=== PATIENT | female | born 1940 | race Caucasian/White ===

== ENCOUNTER 2018-08-22 19:58 | Emergency (ER) | payer MEDICARE ==
[~2018-08-22] VITALS: Ht 152.4 cm; Wt 76.8 kg
[2018-08-22 20:42] LABS: BASOPHILS # (AUTO) 0.1 X10'3 (0-0.2); BASOPHILS % (AUTO) 0.5 % (0-1); EOSINOPHILS # (AUTO) 0.3 X10'3 (0-0.9); EOSINOPHILS % (AUTO) 2.7 % (0-6); HEMATOCRIT 38.9 % (35.0-45.0); HEMOGLOBIN 12.9 g/dl (12.0-16.0); LYMPHOCYTES # (AUTO) 1.3 X10'3 (1.1-4.8); LYMPHOCYTES % (AUTO) 12.7 % (21-51); MEAN CORPUSCULAR HEMOGLOBIN 30.9 PG (27.0-31.0); MEAN CORPUSCULAR HGB CONC 33.2 g/dL (33.0-36.5); MEAN PLATELET VOLUME 7.9 FL (7.4-10.4); MONOCYTES # (AUTO) 1.2 X10'3 (0-0.9); NEUTROPHILS # (AUTO) 7.7 X10'3 (1.8-7.7); NEUTROPHILS % (AUTO) 73.1 % (42-75); PLATELET COUNT 265 X10'3 (140-440); RED BLOOD COUNT 4.18 X10'6 (4.20-5.60); RED CELL DISTRIBUTION WIDTH 13.8 % (11.5-14.5); WHITE BLOOD COUNT 10.5 X10'3 (4.5-11.0)
[2018-08-22 20:53] LABS: CLARITY,URINE SLIGHTLY CLOUDY (Clear); COLOR,URINE YELLOW (Yellow); GLUCOSE, URINE NEGATIVE (Neg); KETONES,URINE NEGATIVE (Neg); LEUKOCYTE ESTERASE ,URINE SMALL (Neg); NITRITES, URINE NEGATIVE (Neg); OCCULT BLOOD,URINE SMALL (Neg); PH,URINE 5.5 (4.8-8.0); PROTEIN,URINE TRACE mg/dl (Neg); UROBILINOGEN,URINE 0.2 E.U/dL (0.2-1.0)
[2018-08-22 20:59] LABS: ALANINE AMINOTRANSFERASE 20 U/L (12-78); ALBUMIN 3.7 G/DL (3.4-5.0); ALBUMIN/GLOBULIN RATIO 0.9 (1.1-1.5); ALKALINE PHOSPHATASE 64 IU/L (46-116); ANION GAP 9 (8-16); ASPARTATE AMINO TRANSFERASE 18 U/L (10-37); BILIRUBIN,TOTAL 0.6 MG/DL (0.1-1.0); BLOOD UREA NITROGEN 18 MG/DL (7-18); BUN/CREATININE RATIO 21.7 (6.6-38.0); CALCIUM 9.5 MG/DL (8.5-10.1); CHLORIDE 101 MMOL/L (99-107); CREATININE 0.83 MG/DL (0.40-0.90); GLUCOSE 118 MG/DL (70-104); LIPASE 120 U/L (73-393); POTASSIUM 3.7 MMOL/L (3.5-5.1); SODIUM 138 MMOL/L (135-145); TOTAL CARBON DIOXIDE 27.7 MMOL/L (24-32); TOTAL PROTEIN 7.8 G/DL (6.4-8.2); eGFR 66 ML/MIN
[2018-08-22] MEDS ORDERED: normal saline 1000ML IV soln IVB ONE (21:00)
[2018-08-22] MEDS ORDERED: ondansetron/PF 4mg/2ml inj IV ONE (21:00)
[2018-08-22 21:01] LABS: UA COLLECTION TYPE CLN CATCH MIDSTREAM
[2018-08-22 21:12] LABS: CAL OXALATE CRYSTALS FEW /HPF (NEGATIVE); SQUAMOUS EPITHELIAL CELL,UR MANY /LPF (FEW)
[2018-08-22 21:13] LABS: AMORPHOUS URATES 2+; BACTERIA,URINE FEW /HPF (Neg); RBC,URINE 0-2 /HPF (0-2); WBC,URINE 0-4 /HPF (0-4)
[2018-08-22] MEDS: morphine 4 MG/ML inj SYRINge IV PRN ×2 (21:32→23:19)
[2018-08-22] MEDS ORDERED: ciprofloxacin 250mg tablet PO ONE (22:55)
[2018-08-22] MEDS ORDERED: metroNIDAZOLE 500mg tablet PO ONE (22:55)
[2018-08-22] MEDS ORDERED: HYDR-3965 PO (22:58)
[2018-08-22] MEDS ORDERED: SENN-162 PO (22:58)
[2018-08-22] MEDS ORDERED: CIPR-230 PO (22:58)
[2018-08-22] MEDS ORDERED: METR-159 PO (22:58)
[2018-08-22 23:19] VITALS: BP 155/66
[2018-08-23 01:57] LABS: OCCULT BLOOD STOOL NEGATIVE (Neg)
== END 2018-08-22 23:42 | disposition home or self-care (01) ==
LOC: ER 19:59 → EDBD 19:59 → ER 23:42
DX: K57.92 Diverticulitis of intestine, part unspecified, without perforation or abscess without bleeding (principal); M54.5 Low back pain; Z79.899 Other long term (current) drug therapy
CPT/HCPCS: 36415; 74176; 80053; 81001; 82272; 83690; 85025; 85610; 96374; 99284; J2270; J2405; J7030; J3490

== ENCOUNTER 2022-09-29 10:26 | Emergency (ER) | payer OTHER, MEDICARE ==
[~2022-09-29] VITALS: Ht 157.5 cm; Wt 54.5 kg
[~2022-09-29 10:26] MED LIST: SENN-263 PO
[2022-09-29 10:29] VITALS: BP 144/58
[2022-09-29] MEDS ORDERED: LIDOcaine 1% W/epiNEPHrine 1:100,000 20ml vial IJ ONE (10:55)
[2022-09-29] MEDS ORDERED: bacitracin 15gm ointment TP ONE (10:55)
[2022-09-29] MEDS ORDERED: TETanus/Pertussis (Acell)/Diphther VAC/PF (Tdap-Adult) 0.5ml syringe IMVAC ONE (10:55)
--- NOTE | 2022-09-29 11:07 | NUR ---
Unable to pull meds from [facility], pharmacy and quality control manager have been notified. Tech has been sent to pharmacy to get medications.
[2022-09-29] MEDS ORDERED: CEPH-585 PO (11:12)
== END 2022-09-29 12:05 | disposition home or self-care (01) ==
LOC: ER 10:27
DX: S61.411A Laceration without foreign body of right hand, initial encounter (principal); X58.XXXA Exposure to other specified factors, initial encounter; Y93.89 Activity, other specified; Y92.89 Other specified places as the place of occurrence of the external cause; Y99.8 Other external cause status
CPT/HCPCS: 12002; 90471; 90715; 99284; J3490

== ENCOUNTER 2023-12-02 15:09 | Emergency (ER) | payer MEDICARE, OTHER ==
[~2023-12-02] VITALS: Ht 157.5 cm; Wt 49.1 kg
[2023-12-02 16:01] LABS: BASOPHILS # (AUTO) 0.1 X10'3 (0-0.2); EOSINOPHILS # (AUTO) 0.6 X10'3 (0-0.9); HEMATOCRIT 24.8 % (35.0-45.0); HEMOGLOBIN 8.2 g/dl (12.0-16.0); LYMPHOCYTES # (AUTO) 1.1 X10'3 (1.1-4.8); LYMPHOCYTES % (AUTO) 11.5 % (21-51); MEAN CORPUSCULAR HEMOGLOBIN 33.2 PG (27.0-31.0); MEAN CORPUSCULAR HGB CONC 33.1 g/dL (33.0-36.5); MEAN CORPUSCULAR VOLUME 100.2 FL (78-98); MEAN PLATELET VOLUME 8.8 FL (7.4-10.4); MONOCYTES # (AUTO) 1.1 X10'3 (0-0.9); MONOCYTES % (AUTO) 11.6 % (2-12); NEUTROPHILS # (AUTO) 6.6 X10'3 (1.8-7.7); NEUTROPHILS % (AUTO) 69.9 % (42-75); PLATELET COUNT 266 X10'3 (140-440); RED BLOOD COUNT 2.47 X10'6 (4.20-5.60); RED CELL DISTRIBUTION WIDTH 14.8 % (11.5-14.5); WHITE BLOOD COUNT 9.4 X10'3 (4.5-11.0)
[2023-12-02 16:14] LABS: PROTHROMBIN TIME 10.9 SECONDS (9.0-12.0)
[2023-12-02 16:26] LABS: ALANINE AMINOTRANSFERASE 20 U/L (12-78); ALBUMIN 3.4 G/DL (3.4-5.0); ALBUMIN/GLOBULIN RATIO 0.8 (1.1-1.5); ALKALINE PHOSPHATASE 61 IU/L (46-116); ANION GAP 9 (8-16); ASPARTATE AMINO TRANSFERASE 28 U/L (10-37); BILIRUBIN,TOTAL 0.2 MG/DL (0.1-1.0); BLOOD UREA NITROGEN 25 MG/DL (7-18); BUN/CREATININE RATIO 22.7 (10.0-20.0); CHLORIDE 106 MMOL/L (99-107); GLUCOSE 117 MG/DL (70-104); LIPASE 62 U/L (16-77); POTASSIUM 3.7 MMOL/L (3.5-5.1); SODIUM 141 MMOL/L (135-145); TOTAL CARBON DIOXIDE 26.3 MMOL/L (24-32); TOTAL PROTEIN 7.5 G/DL (6.4-8.2); eCRCL 29 ML/MIN; eGFR 47 ML/MIN
[2023-12-02 16:39] LABS: CALCIUM 9.4 MG/DL (8.5-10.1)
[2023-12-02] MEDS ORDERED: iohexol 300mg/ml 100ml inj. ONE ×2 (16:59→17:23)
[2023-12-02 17:18] LABS: BILIRUBIN,URINE NEGATIVE (Neg); CLARITY,URINE CLOUDY (Clear); COLOR,URINE YELLOW (Yellow); GLUCOSE, URINE NEGATIVE (Neg); KETONES,URINE NEGATIVE (Neg); LEUKOCYTE ESTERASE ,URINE SMALL (Neg); NITRITES, URINE NEGATIVE (Neg); OCCULT BLOOD,URINE NEGATIVE (Neg); PROTEIN,URINE NEGATIVE (Neg); UA COLLECTION TYPE CLN CATCH MIDSTREAM; UROBILINOGEN,URINE 0.2 E.U/dL (0.2-1.0)
[2023-12-02 17:24] LABS: BACTERIA,URINE 1+ /HPF (Neg); RBC,URINE 0-2 /HPF (0-2); SQUAMOUS EPITHELIAL CELL,UR MANY /LPF (FEW)
[2023-12-02] MEDS: normal saline 1000ml 1,000 ML IV ONE (17:48)
[2023-12-02 19:30] VITALS: TEMP 98.5
[2023-12-02] MEDS: cephalexin 250mg capsule PO ONE (19:40)
[2023-12-02] MEDS: levoFLOXACIN 250mg tablet PO ONE (19:50)
[2023-12-02 19:51] VITALS: BP 130/62; PULSE 101; RESP 16; O2SAT 93
[2023-12-02] MEDS ORDERED: LEVO-65 PO (19:58)
== END 2023-12-02 20:05 | disposition home or self-care (01) ==
LOC: ER 15:11
DX: N39.0 Urinary tract infection, site not specified (principal); D64.9 Anemia, unspecified; I25.10 Atherosclerotic heart disease of native coronary artery without angina pectoris; Z95.1 Presence of aortocoronary bypass graft; Z79.899 Other long term (current) drug therapy
CPT/HCPCS: 36415; 74178; 80053; 81001; 83690; 85025; 85610; 86885; 86900; 86901; 96360; 96361; 99285; J7030; Q9967

== ENCOUNTER 2024-04-24 13:00 | Day surgery (SDC) | payer MEDICARE ==
[~2024-04-24] VITALS: Ht 157.5 cm; Wt 50.0 kg
[2024-04-24 12:23] VITALS: BP 119/45; PULSE 71; RESP 16; TEMP 97.6
[~2024-04-24 13:00] MED LIST changes: +ANAS1TAB10 PO; +ATOR40TA72 PO; +DICL100G59 TOP; +DONE10TA19 PO; +LEVO100T9 PO; +LOSA50TA64 PO; +MEMA10TA22 PO; +PANT40TA54 PO; -SENN-263 PO; +SENN-360 PO; +SERT-434
[2024-04-24] MEDS ORDERED: propofol inj 20 ML IV ONE (13:06)
[2024-04-24 13:46] VITALS: BP 99/31; PULSE 68; RESP 14; O2SAT 100
[2024-04-24 14:00] VITALS: BP 122/35; PULSE 74; RESP 17; O2SAT 100
[2024-04-24 14:10] VITALS: BP 141/88; PULSE 71; RESP 16; O2SAT 96
[2024-04-24 14:20] VITALS: BP 102/86; PULSE 60; RESP 15; O2SAT 97
== END 2024-04-24 14:55 | disposition home or self-care (01) ==
LOC: GI LAB 13:00
PROVIDERS: ATTEND Internal Medicine Gastroenterology
DX: R19.5 Other fecal abnormalities (principal); K63.5 Polyp of colon; K64.9 Unspecified hemorrhoids; K57.30 Diverticulosis of large intestine without perforation or abscess without bleeding; D50.9 Iron deficiency anemia, unspecified; F03.90 Unspecified dementia, unspecified severity, without behavioral disturbance, psychotic disturbance, mood disturbance, and anxiety; I10 Essential (primary) hypertension; I25.10 Atherosclerotic heart disease of native coronary artery without angina pectoris; I25.2 Old myocardial infarction; E03.9 Hypothyroidism, unspecified; Z95.5 Presence of coronary angioplasty implant and graft; Z79.899 Other long term (current) drug therapy; Z91.040 Latex allergy status
CPT/HCPCS: 45385; A4620; C1889; J2704; J7030; Z7512